=== PATIENT | female | born 1980 | race Caucasian/White ===

== ENCOUNTER → 2016-10-09 | Outpatient (CLI) | payer BC, OTHER ==
[~2016-10-09] MED LIST: BACLOFEN5 GM
--- NOTE | ~2016-10-09 | US84 ---
[id number] [address] [id number] O MR#: [id number] Acc #: [id number] NAME: ESTRELLA GRAHAM : 1980 SEX: F STUDY DATE/TIME: 10/09/2016 15:43 UNIT: SN[facility] ROOM: STUDY DESCRIPTION: US LE Veins Complete Davian Stdy Attending Physician: Matt Cantu M.D. Referring Physician: Matt Cantu M.D. Ordering Physician: Matt Cantu M.D. Primary Care Physician: Matt Cantu M.D. MEDICAL IMAGING REPORT This report is preliminary unless electronic signature is present. EXAM Bilateral lower extremity venous duplex. CLINICAL HISTORY Bilateral swelling x1 month, previous DVT 2010. Taking Coumadin sin 2010. FINDINGS There is phasic spontaneous flow with respirations seen over the right common femoral, femoral, deep femoral, and popliteal veins. There is flow present with augmentation of the right anterior tibial, posterior tibial, peroneal, and saphenous veins. There is compressibility of the vein lumen of all of the aforementioned vessels. There is phasic spontaneous flow with respiration seen over the left common femoral, deep femoral, femoral, and popliteal veins. There is flow present with augmentation of the left anterior tibial, posterior tibial, peroneal and saphenous veins. This compressibility of the vein lumen of all of the aforementioned vessels. IMPRESSION 1. There is no evidence of DVT of the right lower extremity on today's exam. 2. There is no evidence of a DVT of the left lower extremity on today's exam. Dictated by... Alejandro Dawson M.D. THIS IS AN ELECTRONICALLY VERIFIED REPORT Alejandro Dawson M.D. at 10/14/2016 7:12 AM Joel TD: 10/09/2016 23:20 JOB #: [id number] MEDICAL IMAGING REPORT Page 1 of 1
--- NOTE | ~2016-10-09 | CR172 ---
[facility]. [facility] A Service of [facility] & [facility] RADIOLOGY TEXT RESULTS PATIENT: ESTRELLA GRAHAM LOCATION: SNIV : [birth year] UNIT #: [id number] AGE: [address]: Matt Cantu MD SEX: F ORDER DR: [id number] [address] [address] [id number] O MR#: [id number] Acc #: [id number] NAME: ESTRELLA GRAHAM : 1980 SEX: F STUDY DATE/TIME: 10/09/2016 15:44 UNIT: [facility] ROOM: STUDY DESCRIPTION: CR Knee 3 Views Lt Attending Physician: Matt Cantu M.D. Referring Physician: Matt Cantu M.D. Ordering Physician: Matt Cantu M.D. Primary Care Physician: Matt Cantu M.D. MEDICAL IMAGING REPORT This report is preliminary unless electronic signature is present. EXAM Left knee 3 views 10/09/2016 HISTORY Left knee pain and swelling for 1 day posteriorly. No known injury. FINDINGS AP and lateral projection of the knee shows smooth articular anatomy without indication of fracture or dislocation at the major weight-bearing surface of the knee. There is no indication of radiopaque foreign body about the knee surface or joint effusion. IMPRESSION Normal knee. Dictated by... Juan Galeano M.D. THIS IS AN ELECTRONICALLY VERIFIED REPORT Juan Galeano M.D. at 10/10/2016 7:19 AM KRT/pcl TD: 10/09/2016 23:06 JOB #: [id number] MEDICAL IMAGING REPORT Page 1 of 1
--- NOTE | ~2016-10-09 | CR173 ---
[facility]. [facility] A Service of [facility] & [facility] RADIOLOGY TEXT RESULTS PATIENT: ESTRELLA GRAHAM LOCATION: SNIV : 78 UNIT #: [id number] AGE: [address]: Matt Cantu MD SEX: F ORDER DR: [id number] [address] [address] [id number] O MR#: [id number] Acc #: [id number] NAME: ESTRELLA GRAHAM : 1980 SEX: F STUDY DATE/TIME: 10/09/2016 15:44 UNIT: SNIV ROOM: STUDY DESCRIPTION: CR Knee 3 Views Rt Attending Physician: Matt Cantu M.D. Referring Physician: Matt Cantu M.D. Ordering Physician: Matt Cantu M.D. Primary Care Physician: Matt Cantu M.D. MEDICAL IMAGING REPORT This report is preliminary unless electronic signature is present. EXAM Right knee 3 views, 10/09/2016 HISTORY Right knee pain and swelling for 1 month. No known injury. FINDINGS AP and lateral projection of the knee shows smooth articular anatomy without indication of fracture or dislocation at the major weight-bearing surface of the knee. There is no indication of radiopaque foreign body about the knee surface or joint effusion. IMPRESSION Normal knee. Dictated by... Juan Galeano M.D. THIS IS AN ELECTRONICALLY VERIFIED REPORT Juan Galeano M.D. at 10/10/2016 7:19 AM ALDA/lety TD: 10/09/2016 23:04 JOB #: [id number] MEDICAL IMAGING REPORT Page 1 of 1
== END | disposition home or self-care (01) ==
LOC: SNIV 15:00
DX: M25.561 Pain in right knee (principal); M25.562 Pain in left knee; I82.509 Chronic embolism and thrombosis of unspecified deep veins of unspecified lower extremity
CPT/HCPCS: 73562; 93970